=== PATIENT | female | born 1990 | race Two or more races ===

== ENCOUNTER → 2024-08-14 | Outpatient (CLI) | payer MEDICAID, SELFPAY ==
[2024-08-14 07:45] LABS: HCG Qualitative,Urine Negative
--- NOTE | 2024-08-14 08:00 | XR_ITS ---
Examination: MRI of brain without intravenous contrast. MRI brain with intravenous contrast. Date and time of exam:August 14, 2024 0838 hours INDICATIONS: Headaches with left-sided body weakness visual disturbance beginning December 2023 Technique: Multiple axial and sagittal images of the brain to been obtained. Siemens high-resolution 1.52 [employer] short bore scanner utilized. Sagittal sections, T1 weighted images, TR 500, TE 14, are performed. Axial sections proton-density and T2-weighted images have been obtained. Inversion recovery axial images, TR 9260, TE 111, TR 2500. Diffusion weighted images, axial sections, TR 4800, TE 128, B value 1000. Axial sections, ADC map, TR 4800, TE 128. Axial and coronal images were also obtained post 16 cc gadolinium administered intravenously. Findings:: Enlargement of the sella turcica is not present. The optic chiasm and infundibular stalk are not remarkable. There is no localized enlargement of the medulla or carole. Fourth ventricle and cerebellar tonsils appear normal in position. No subacute area of hemorrhage density is seen. Fourth ventricle is midline. Mass in the cerebellopontine angle region is not evident. 7th and 8th nerve complexes exhibit symmetry Globes are symmetrical Orbital musculature including medial lateral rectus muscles do not exhibit abnormality Increased white matter signal is not seen Effacement of the cortical sulcal markings is not identified. Mass effect upon the ventricular system is not identified. Diffusion-weighted images demonstrate no focus of restricted diffusion Contrast images demonstrate no abnormal contrast enhancement Impression: Negative for acute hemorrhage mass effect or midline shift No acute infarct No MR findings diagnostic for demyelinating disease
--- NOTE | 2024-08-14 08:45 | XR_ITS ---
Examination: MRI cervical spine, without intravenous contrast. MRI cervical spine , with intravenous contrast. Exam date and time: August 14, 2024 0838 hours INDICATIONS: Headaches with left-sided body weakness beginning December 2023 Technique: Multiple axial, sagittal and coronal images of the cervical spine have been obtained with the Siemens high-resolution 1.5 [facility] MRI scanner. Images obtained included T2 weighted fat suppressed sagittal sections, TR 3500, TE 46, T2 weighted coronal fat suppressed images, TR 3050, TE 84, T2-weighted transverse fat suppressed images, TR 30-60, TE 63, proton density transverse images, TR 4720, TE 46, and T1 weighted coronal images, TR 560, TE 13. Axial, sagittal and coronal images are obtained post intravenous injection 16 cc gadolinium. Findings: Satisfactory alignment cervical vertebral bodies. No cervical fracture. No focal cervical disc protrusion. No localized enlargement cervical cord. Postcontrast images demonstrate no abnormal osseous epidural or cervical cord enhancement IMPRESSION: Satisfactory alignment cervical vertebral bodies No cervical disc protrusion Postcontrast images demonstrate no abnormal osseous epidural or cervical cord enhancement
== END | disposition home or self-care (01) ==
PROVIDERS: PCP Physician Assistant; Referring Provider Nurse Practitioner Family; Visit Provider Nurse Practitioner Family
DX: G43.409 Hemiplegic migraine, not intractable, without status migrainosus (principal); H53.9 Unspecified visual disturbance; R53.1 Weakness; Z32.00 Encounter for pregnancy test, result unknown
CPT/HCPCS: 70553; 72156; 81025; A9579

== ENCOUNTER → 2024-08-15 | Outpatient (CLI) | payer MEDICAID, SELFPAY ==
--- NOTE | 2024-08-15 09:30 | XR_ITS ---
Examination: MRI thoracic spine, without intravenous contrast. MRI thoracic spine , with intravenous contrast. Exam date and time: August 15, 2024 at 1044 hours INDICATIONS: Left-sided body weakness headaches beginning December 2023 Technique: Multiple axial, sagittal and coronal images of the thoracic spine have been obtained with the Siemens high-resolution 1.5 [facility] MRI scanner. Images obtained included T2 weighted fat suppressed sagittal sections, TR 3500, TE 46, T2 weighted coronal fat suppressed images, TR 3050, TE 84, T2-weighted transverse fat suppressed images, TR 30-60, TE 63, proton density transverse images, TR 4720, TE 46, and T1 weighted coronal images, TR 560, TE 13. Axial, sagittal and coronal images are obtained post intravenous injection 60 cc gadolinium. Findings: Satisfactory alignment thoracic vertebral bodies Normal marrow signal thoracic vertebral bodies T7-T8, T8-T9 minimal 1 to 2 mm central lumbar disc bulges No impingement upon the thoracic cord No localized enlargement thoracic cord, no series cavity Postcontrast images demonstrate no abnormal osseous epidural or thoracic cord enhancement IMPRESSION: No significant acquired spinal stenosis No abnormal osseous epidural or thoracic cord enhancement
--- NOTE | 2024-08-15 10:15 | XR_ITS ---
Examination: MRI lumbar spine, without intravenous contrast. MRI lumbar spine , with intravenous contrast. Exam date and time: August 15, 2024 1044 hours INDICATIONS: Diagnosis headaches with metrorrhagia left-sided body weakness numbness left side of the body Technique: Multiple axial, sagittal and coronal images of the lumbar spine have been obtained with the Siemens high-resolution 1.5 [facility] MRI scanner. Images obtained included T2 weighted fat suppressed sagittal sections, TR 3500, TE 46, T2 weighted coronal fat suppressed images, TR 3050, TE 84, T2-weighted transverse fat suppressed images, TR 30-60, TE 63, proton density transverse images, TR 4720, TE 46, and T1 weighted coronal images, TR 560, TE 13. Axial, sagittal and coronal images are obtained post intravenous injection 16 cc gadolinium. Findings: Satisfactory alignment lumbar vertebral bodies No lumbar fracture Normal marrow signal lumbar vertebral bodies Postcontrast images demonstrate no abnormal osseous epidural conus medullaris or cauda equina enhancement No lumbar disc narrowing Axial images demonstrate no focal lumbar disc protrusion IMPRESSION: Satisfactory alignment lumbar vertebral bodies No lumbar fracture No focal lumbar disc protrusion No abnormal osseous epidural conus medullaris or cauda equina enhancement
== END | disposition home or self-care (01) ==
PROVIDERS: PCP Physician Assistant; Referring Provider Nurse Practitioner Family; Visit Provider Nurse Practitioner Family
DX: G43.409 Hemiplegic migraine, not intractable, without status migrainosus (principal); H53.9 Unspecified visual disturbance; R53.1 Weakness
CPT/HCPCS: 72157; 72158; A9579